=== PATIENT | male | born 1935 | race Caucasian/White ===

== ENCOUNTER → 2023-10-07 06:59 | Outpatient (REF) | payer MEDICARE, OTHER, SELFPAY ==
[2023-10-07 07:34] LABS: % Basophils 0.8 % (0-2); % Eosinophils 1.7 % (0-6); % Immature Granulocytes 0.2 % (0-0.5); % Lymphocytes 25.5 % (20.5-51.1); % Monocytes 7.4 % (1.7-9.3); % Neutrophils 64.4 % (42.2-75.2); Absolute Basophils 0.1 10^3/uL (0-0.2); Absolute Eosinophils 0.1 10^3/uL (0-0.7); Absolute Lymphocytes 1.7 10^3/uL (1.2-3.4); Absolute Monocytes 0.5 10^3/uL (0.1-0.6); Absolute Neutrophils 4.3 10^3/uL (1.4-6.5); Hemoglobin 14.3 g/dL (13.0-18.0); Mean Corp Hgb Conc. 32.5 g/dL (33.0-37.0); Mean Corpuscular Hgb 27.9 pg (27.0-31.0); Mean Corpuscular Volume 85.9 fL (80.0-94.0); Mean Platelet Volume 10.2 fL (7.4-10.4); Nucleated Red Blood Cells % 0 % (-); Platelet Count 254 10^3/uL (130-400); Red Blood Cell Count 5.12 10^6/uL (4.70-6.10); Red Cell Dist. Width 14.8 % (11.5-14.5); Urine Albumin Negative (Neg - Trace); Urine Bilirubin Negative (Negative); Urine Character Clear (Clear); Urine Color Yellow; Urine Glucose Negative (Negative); Urine Ketone Negative (Negative); Urine Leukocyte Negative (Negative); Urine Nitrite Negative (Negative); Urine Occult Blood Negative (Negative); Urine Urobilinogen Negative (Neg - 1+); Urine pH 6.5 (5.0-9.0); White Blood Cell Count 6.6 10^3/uL (4.8-10.8)
[2023-10-07 08:10] LABS: ALT (SGPT) 33 U/L (0-50); AST (SGOT) 35 U/L (17-59); Albumin 4.2 g/dl (3.5-5.0); Alkaline Phosphatase 93 U/L (38-126); Blood Urea Nitrogen 14 mg/dl (9-20); Calcium 9.8 mg/dl (8.4-10.2); Carbon Dioxide 30 mmol/L (22-30); Chloride 103 mmol/L (98-107); Glucose 109 mg/dl (70-99); HDL Cholesterol 60 mg/dl; LDL Cholesterol, Calculated 124 mg/dl; Potassium 4.1 mmol/L (3.5-5.1); Sodium 143 mmol/L (135-145); Total Bilirubin 0.6 mg/dl (0.2-1.3); Total Cholesterol 199 mg/dl (50-199); Total Protein 7.2 g/dl (6.3-8.2); Triglyceride 78 mg/dl (10-149); Very Low Density Lipoprotein 15 mg/dl (0-30); eGFR > 60.00
[2023-10-07 08:33] LABS: PSA, Total - Diagnostic 3.41 ng/ml (0.0-4.0)
== END ==
LOC: REG 06:59
PROVIDERS: ATTENDING PHYSICIAN Internal Medicine
DX: I10 Essential (primary) hypertension (principal); K21.9 Gastro-esophageal reflux disease without esophagitis; N40.1 Benign prostatic hyperplasia with lower urinary tract symptoms; K76.0 Fatty (change of) liver, not elsewhere classified
CPT/HCPCS: 36415; 80053; 80061; 81003; 84153; 85025

== ENCOUNTER → 2024-09-07 10:11 | Outpatient (REF) | payer MEDICARE, OTHER, SELFPAY | LOC: RAD 10:11 | PROVIDERS: ATTENDING PHYSICIAN Internal Medicine | DX: M70.41 Prepatellar bursitis, right knee (principal) | CPT/HCPCS: 73564 ==

== ENCOUNTER → 2024-10-04 07:06 | Outpatient (REF) | payer MEDICARE, OTHER, SELFPAY ==
[2024-10-04 07:41] LABS: % Eosinophils 2.4 % (0-6); % Immature Granulocytes 0.3 % (0-0.5); % Lymphocytes 25.3 % (20.5-51.1); % Monocytes 9.3 % (1.7-9.3); % Neutrophils 61.7 % (42.2-75.2); Absolute Basophils 0.1 10^3/uL (0-0.2); Absolute Eosinophils 0.2 10^3/uL (0-0.7); Absolute Lymphocytes 1.8 10^3/uL (1.2-3.4); Absolute Monocytes 0.7 10^3/uL (0.1-0.6); Absolute Neutrophils 4.4 10^3/uL (1.4-6.5); Hematocrit 41.8 % (39.0-52.0); Hemoglobin 13.6 g/dL (13.0-18.0); Mean Corp Hgb Conc. 32.5 g/dL (33.0-37.0); Mean Corpuscular Hgb 27.4 pg (27.0-31.0); Mean Corpuscular Volume 84.3 fL (80.0-94.0); Nucleated Red Blood Cells % 0 % (-); Platelet Count 185 10^3/uL (130-400); Red Blood Cell Count 4.96 10^6/uL (4.70-6.10); Red Cell Dist. Width 14.6 % (11.5-14.5); White Blood Cell Count 7.1 10^3/uL (4.8-10.8)
[2024-10-04 07:43] LABS: Urine Albumin Negative (Neg - Trace); Urine Bilirubin Negative (Negative); Urine Character Clear (Clear); Urine Color Yellow; Urine Glucose Negative (Negative); Urine Ketone Negative (Negative); Urine Leukocyte Negative (Negative); Urine Nitrite Negative (Negative); Urine Occult Blood Negative (Negative); Urine Specific Gravity 1.015 (<1.030); Urine Urobilinogen Negative (Neg - 1+); Urine pH 6.5 (5.0-9.0)
[2024-10-04 08:09] LABS: ALT (SGPT) 30 U/L (0-50); AST (SGOT) 30 U/L (17-59); Albumin 4.6 g/dl (3.5-5.0); Alkaline Phosphatase 74 U/L (38-126); Blood Urea Nitrogen 16 mg/dl (9-20); Calcium 9.7 mg/dl (8.4-10.2); Carbon Dioxide 31 mmol/L (22-30); Chloride 104 mmol/L (98-107); Glucose 105 mg/dl (70-99); HDL Cholesterol 69 mg/dl; LDL Cholesterol, Calculated 109 mg/dl; Potassium 3.4 mmol/L (3.5-5.1); Sodium 142 mmol/L (135-145); Total Bilirubin 0.6 mg/dl (0.2-1.3); Total Cholesterol 192 mg/dl (50-199); Total Protein 7.3 g/dl (6.3-8.2); Triglyceride 73 mg/dl (10-149); Very Low Density Lipoprotein 14 mg/dl (0-30); eGFR > 60.00
[2024-10-04 08:36] LABS: PSA, Total - Screen 2.39 ng/ml (0.0-4.0)
== END ==
LOC: REG 07:06
PROVIDERS: ATTENDING PHYSICIAN Internal Medicine
DX: M70.41 Prepatellar bursitis, right knee (principal); I10 Essential (primary) hypertension; E78.00 Pure hypercholesterolemia, unspecified; N40.0 Benign prostatic hyperplasia without lower urinary tract symptoms; K76.0 Fatty (change of) liver, not elsewhere classified
CPT/HCPCS: 36415; 80053; 80061; 81003; 85025; G0103

== ENCOUNTER → 2025-01-17 10:06 | Outpatient (REF) | payer MEDICARE, OTHER, SELFPAY ==
[2025-01-17 11:02] LABS: Hematocrit 41.0 % (39.0-52.0); Hemoglobin 13.3 g/dL (13.0-18.0); Mean Corp Hgb Conc. 32.4 g/dL (33.0-37.0); Mean Corpuscular Volume 83.2 fL (80.0-94.0); Nucleated Red Blood Cells % 0 % (-); Platelet Count 188 10^3/uL (130-400); Red Cell Dist. Width 15.8 % (11.5-14.5)
[2025-01-17 11:54] LABS: ALT (SGPT) 34 U/L (0-50); AST (SGOT) 34 U/L (17-59); Albumin 4.3 g/dl (3.5-5.0); Alkaline Phosphatase 93 U/L (38-126); Blood Urea Nitrogen 14 mg/dl (9-20); Calcium 9.4 mg/dl (8.4-10.2); Carbon Dioxide 31 mmol/L (22-30); Chloride 102 mmol/L (98-107); Glucose 133 mg/dl (70-99); Potassium 3.5 mmol/L (3.5-5.1); Sodium 140 mmol/L (135-145); Total Protein 6.9 g/dl (6.3-8.2); eGFR > 60.00
== END ==
LOC: REG 10:06
PROVIDERS: ATTENDING PHYSICIAN Internal Medicine
DX: R06.02 Shortness of breath (principal); R42 Dizziness and giddiness; I10 Essential (primary) hypertension
CPT/HCPCS: 36415; 71046; 80053; 85025